=== PATIENT | female | born 1955 | race Caucasian/White ===

== ENCOUNTER → 2023-11-24 11:57 | Outpatient (REF) | payer OTHER, SELFPAY | LOC: RAD 11:57 | PROVIDERS: ATTENDING PHYSICIAN Nurse Practitioner Adult Health; FAMILY PHYSICIAN Internal Medicine | DX: M79.601 Pain in right arm (principal) | CPT/HCPCS: 72040; 73030 ==

== ENCOUNTER → 2024-02-01 11:12 | Outpatient (REF) | payer OTHER, SELFPAY | LOC: WDC 11:12 | PROVIDERS: ATTENDING PHYSICIAN Internal Medicine | DX: Z12.31 Encounter for screening mammogram for malignant neoplasm of breast (principal) | CPT/HCPCS: 77063; 77067 ==